=== PATIENT | male | born 1965 | race Hispanic/Latino ===

== ENCOUNTER 2020-12-06 17:22 | Emergency (ER) | payer MEDICAID, OTHER ==
[2020-12-06] MEDS ORDERED: LIDOCAINE HCL 2% JELLY 5 ML ONE (18:33)
== END 2020-12-06 19:05 | disposition home or self-care (01) ==
LOC: EDH 17:22
DX: K60.0 Acute anal fissure (principal)

== ENCOUNTER 2025-03-19 03:23 | Emergency (ER) | payer SELFPAY ==
[~2025-03-19] VITALS: Ht 165.1 cm; Wt 70.5 kg
[2025-03-19 04:12] LABS: BASOPHILS # (AUTO) 0.02 K/uL (0.00-0.20); BASOPHILS % (AUTO) 0.3 % (0.0-5.0); EOSINOPHILS % (AUTO) 1.4 % (0.0-8.0); HEMATOCRIT 41.7 % (42-54); IMMATURE GRANULOCYTE ABSOLUTE 0.01 K/uL (0-1); LYMPHOCYTES # (AUTO) 4.4 K/uL (1.0-4.8); LYMPHOCYTES % (AUTO) 59.9 % (21.0-51.0); MEAN CORPUSCULAR HEMOGLOBIN 29.4 pg (27.0-33.0); MEAN CORPUSCULAR HGB CONC 34.5 g/dL (32.0-36.0); MEAN CORPUSCULAR VOLUME 85.1 fL (79-99); MONOCYTES # (AUTO) 0.6 K/uL (0.1-1.0); MONOCYTES % (AUTO) 7.5 % (3.0-13.0); NEUTROPHILS # (AUTO) 2.3 K/uL (1.8-7.7); NEUTROPHILS % (AUTO) 30.8 % (40.0-77.0); PLATELET COUNT (AUTO) 204 K/uL (130-400); WHITE BLOOD COUNT (AUTO) 7.4 K/uL (4.8-10.8)
[2025-03-19] MEDS: [UNRECOGNIZED DRUG - OTHER] IV ONE (04:18)
[2025-03-19] MEDS ORDERED: 0.9%NACL 1000ML IV ONE (04:18)
[2025-03-19 04:23] LABS: ALBUMIN 3.9 g/dL (3.5-5.0); BILIRUBIN,TOTAL 0.4 mg/dL (0.2-1.0); POTASSIUM 3.6 mmol/L (3.5-5.1); TOTAL PROTEIN, SERUM 7.8 g/dL (6.0-8.3)
[2025-03-19] MEDS: INSULIN humuLIN R 100 UNIT/ML 3ML SQ ONE ×2 (05:12→06:39)
[2025-03-19] MEDS ORDERED: IOHEXOL-350 75 ML VIAL IV ONE (05:29)
--- NOTE | 2025-03-19 05:51 | NUR ---
DR. BEARD MADE AWARE OF PT NOW REPORTING ITHCINGWITH NOTICABLE HIVES TO FACE AFTER ADMINISTRATION OF IV CONTRAST, PT CONTINUES TO DENY ALLERGIES TO CONTRAST IODINE. BENADRYL 25MG IV ORDERED BY DR. BEARD AT THIS TIME.
[2025-03-19] MEDS: DiphenhydrAMINE HCL 50 MG/ML VIAL ONE (05:58)
[2025-03-19] MEDS: DiphenhydrAMINE HCL 50 MG/ML VIAL IV ONE (05:58)
--- NOTE | 2025-03-19 05:58 | NUR ---
BENADRYL 25MG IV ADMINISTERED AT THIS TIME FOR HIVES AND ITCHING SP IV CONTRAST IODINE. PT IS A&OX4, GCS 15, RESP EVEN AND UNLABORED ON RA, TACHYCARDIA NOTED 110s, PT DENIES SOB, NO SIGNS OF AIRWAY COMPROMISE, AIRWAY IS PATENT AND MAINTAINED ON RA.
[2025-03-19] MEDS ORDERED: MECL-302 PO (06:38)
--- NOTE | 2025-03-19 06:39 | ERN ---
General Chief Complaint: Dizzy/Light Headed Stated Complaint: DIZZINESS Time Seen by MD: 03:35 History of Present Illness Initial Comments Mr Simpson is a year-old male who with a history of diabetes who presents to the ED after complaints of intermittent dizziness that began while he was sleeping. He describes the dizziness as feeling like you can not walk initially attributed to the hyperglycemia. He self administered candy and seat foods but with partial but not complete resolution. He denies measuring his blood sugar and does not check it for the last 3 months. He also reports neck pain, red flush face and trembling earlier with mild polyuria but denies chest pain, shortness of breath and recent illness. Dizziness is positional to some extent worsening with standing he has not involve room spinning or true vertigo. He can walk unassisted but reports feeling off during certain movements were coordination tests Allergies: Coded Allergies: Iodinated Contrast Media (Unverified Allergy, Intermediate, HIVES, 03/19/25) HIVES AND ITCHING NOTED AFTER IV CONTRAST ADMINISTRATION. No Known Allergies (Unverified Allergy, Unknown, 03/19/25) Past Medical History Past Medical History: Diabetes-Type II Past Surgical History: None ROS Dictation Constitutional: Negative for fever,chills, and weight loss Eyes: Negative for injury, pain,redness, and discharge ENT: Positive neck discomfort Cardiovascular: Negative for chest pain, palpitations, and edema Respiratory: Negative for shortness of breath, cough, and wheezing, Abdomen/GI: Negative for abdominal pain, nausea, vomiting, diarrhea, and constipation Back: Negative for injury and pain : Negative for injury, bleeding and discharge MS/Extremity: Negative for injury and deformity Skin: Negative for rash, and discoloration Neuro: Intermittent dizziness, subjective imbalance no focal weakness Psych: Negative for suicide ideation, homicidal ideation, and hallucinations Physical Exam Physical Exam Dictation General: awake, alert, NAD Head/Face: Normocephalic, atraumatic Eyes: PERRL, EOMI, vision at baseline ENT: oral cavity clear, TMs clear, no signs of infection Neck: Trachea midline, supple, no nuchal rigidity Cardiovascular: RRR, normal S1/S2, No MRGs, no JVD Respiratory: CTAB, no respiratory distress, No rales or wheezes Abdomen: Soft, non-tender, non-distended, normal bowel sounds, no guarding or rebound. Skin: Warm, dry, normal turgor, no rash MS/Extremity: Pulses equal, no cyanosis, neurovascular intact, FROM Neuro: Cranial nerves intact, motor 5/5 bilateral strength in the upper and lower extremities. Sensation is intact to touch on the face and extremities. Cerebellar: Slight difficulty with coordination task (rapid alternating movements). Ambulates independently mild imbalance noted Psych: Normal behavior, mood, and affect normal Results Laboratory and Microbiology Lab and Micro Result Laboratory Tests Test 03/19/25 03:43 03/19/25 03:52 03/19/25 05:54 Whole Blood Glucose 432 MG/DL (70-110) *H 293 MG/DL (70-110) H White Blood Count 7.4 K/uL (4.8-10.8) Red Blood Count 4.90 MIL/uL (4.50-6.20) Hemoglobin 14.4 g/dL (14.0-18.0) Hematocrit 41.7 % (42-54) L Mean Corpuscular Volume 85.1 fL (79-99) Mean Corpuscular Hemoglobin 29.4 pg (27.0-33.0) Mean Corpuscular Hemoglobin Concent 34.5 g/dL (32.0-36.0) Red Cell Distribution Width 13.0 % (11.0-15.5) Platelet Count 204 K/uL (130-400) Mean Platelet Volume 11.7 fL (7.5-10.5) H Immature Granulocyte % (Auto) 0.1 % (0-1) Neutrophils (%) (Auto) 30.8 % (40.0-77.0) L Lymphocytes (%) (Auto) 59.9 % (21.0-51.0) H Monocytes (%) (Auto) 7.5 % (3.0-13.0) Eosinophils (%) (Auto) 1.4 % (0.0-8.0) Basophils (%) (Auto) 0.3 % (0.0-5.0) Neutrophils # (Auto) 2.3 K/uL (1.8-7.7) Lymphocytes # (Auto) 4.4 K/uL (1.0-4.8) Monocytes # (Auto) 0.6 K/uL (0.1-1.0) Eosinophils # (Auto) 0.10 K/uL (0.00-0.70) Basophils # (Auto) 0.02 K/uL (0.00-0.20) Absolute Immature Granulocyte (auto 0.01 K/uL (0-1) Nucleated Red Blood Cells 0.0 % (0.0-0.19) Sodium Level 132 mmol/L (136-145) L Potassium Level 3.6 mmol/L (3.5-5.1) Chloride Level 95 mmol/L (101-111) L Carbon Dioxide Level 29 mmol/L (21-32) Blood Urea Nitrogen 15 mg/dL (7-18) Creatinine 1.0 mg/dL (0.5-1.3) Glomerular Filtration Rate Calc 88 mL/min (>90) Random Glucose 428 mg/dL (70-105) *H Total Calcium 8.7 mg/dL (8.5-10.1) Total Bilirubin 0.4 mg/dL (0.2-1.0) Aspartate Amino Transf (AST/SGOT) 15 U/L (10-37) Alanine Aminotransferase (ALT/SGPT) 30 U/L (12-78) Alkaline Phosphatase 149 U/L (50-136) H Total Protein 7.8 g/dL (6.0-8.3) Albumin 3.9 g/dL (3.5-5.0) MDM CT head is negative for any acute intracranial abnormality. CT a shows no large vessel occlusion or aneurysm. Patient likely has combination of elevated blood sugar and vertigo. Patient is symptomatically improved from rash related to contrast and he will be given meclizine. Advised patient to follow up with the primary care physician MDM: Differential diagnosis: Vertigo, uncontrolled diabetes Rationale: Tests considered and ordered secondary to shared decision making include: Previous outside records reviewed: Old ER visits. Risk of complication and/or morbidity or mortality of patient management: None Medications-Per medication reconciliation Need for hospitalization: Patient does not meet criteria for hospitalization. Need for emergency major/minor surgery: No There are no social concerns with this patient. Prescription drug management Prescriptions will include symptomatic care Patient's prior external medical records from other ER visits were reviewed by me as indicated. Prior testing and results from previous visits were reviewed. Prior tests were taken into account with medical decision making and resource utilization, independent historian/historians were used to obtain complete medical history. I independently interpreted the test that were performed, results were reviewed by me and considered findings on radiology if ordered. Medical management and examination interpretation discussions were had by me with other qualified healthcare professionals as indicated for the patient's care. ED Course Orders Procedure Category Date Status Time Ct Angio Head And Neck CT 03/19/25 Taken 03:59 Ct Head/Brain W/O CT 03/19/25 Taken Contrast 03:59 Comprehensive LAB 03/19/25 Complete Metabolic Panel 03:59 12 Lead Ekg Tracing- EKG 03/19/25 Logged Technical 03:59 0.9%Nacl 1000ml (Ns PHA 03/19/25 In Process 1000ml) 04:00 Cbc With Differential LAB 03/19/25 Complete 03:52 Insulin Regular, PHA 03/19/25 Complete Human 3ml (Humulin R 05:00 Iohexol (Omnipaque) PHA 03/19/25 Complete 05:29 Diphenhydramine Hcl PHA 03/19/25 Complete (Benadryl Inj) 06:00 Diphenhydramine Hcl PHA 03/19/25 Complete (Benadryl Inj) 05:54 Current Medications Medications (Trade) Dose Ordered Sig/Amos Route PRN Reason Start Time Stop Time Status Last Admin Dose Admin Diphenhydramine HCl (BENAdryl INJ) 25 mg ONCE ONCE IV 03/19/25 06:00 03/19/25 06:01 DC 03/19/25 05:58 Diphenhydramine HCl (BENAdryl INJ) 50 mg STK-MED ONCE .ROUTE 03/19/25 05:54 03/19/25 05:55 DC Insulin Human Regular (humuLIN R 100 UNIT/ML 3ML) 12 unit ONCE ONCE SQ 03/19/25 05:00 03/19/25 05:02 DC 03/19/25 05:12 Iohexol (Omnipaque) 75 ml STK-MED ONCE IV 03/19/25 05:29 03/19/25 05:29 DC Sodium Chloride 1,230 ml @ 410 mls/hr ONCE ONCE IV 03/19/25 04:00 03/19/25 06:59 03/19/25 04:18 Vital Signs Date Time Temp Pulse Resp B/P (MAP) Pulse Ox O2 Delivery O2 Flow Rate FiO2 03/19/25 03:50 98.4 102 18 132/79 98 Room Air* 0 21 03/19/25 03:25 97.5 112 19 157/82 98 Room Air 0 DX & DISP Disposition: Discharge Departure Impression: Primary Impression: Vertigo Condition: Stable Scripts Meclizine HCl (Meclizine HCl) 25 Mg Tablet 25 MG PO [id number] PRN for DIZZINESS for 10 Days, #20 TAB 0 Refills Prov: NEELAM BEARD MD 03/19/25 Additional Instructions: Please take meclizine for your dizziness. Please follow up with your primary care physician for further evaluation and care. Your CT imaging is negative for any acute stroke. Please make sure you control your blood sugar and keep it below 250. Referrals: SELF,REFERRAL (PCP) NEELAM BEARD MD Mar 19, 2025 06:39
--- NOTE | 2025-03-19 06:40 | EKG ---
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
[2025-03-19 06:41] VITALS: BP 124/72; PULSE 95; RESP 17; TEMP 98.4; O2SAT 97
--- NOTE | 2025-03-19 08:21 | HMCIMG ---
CT HEAD/BRAIN W/O CONTRAST HISTORY: Dizziness COMPARISON: None TECHNIQUE: Multiple sequential axial images of the head were obtained from the base of the skull through vertex. Patient was not given contrast through intravenous route. FINDINGS: The ventricles and extraventricular CSF spaces are nondilated for patient's age. There is no midline shift, mass effect or herniation. No acute intracranial bleed is seen. Visualized portion of the paranasal sinuses are grossly within normal limits. IMPRESSION: 1. No acute intracranial bleed is seen. CT was performed with one or more following dose reduction techniques: automated exposure control, adjustment of the mA and kv according to patient's size, or use of a iterative reconstruction technique.
--- NOTE | 2025-03-19 08:45 | HMCIMG ---
CT ANGIO HEAD AND NECK HISTORY: Dizziness COMPARISON: None TECHNIQUE: CT angiography of the head was performed. The study was performed using angiographic technique with maximum intensity projection reconstruction images. Patient was given 75 cc of Omnipaque through intravenous route. FINDINGS: The ventricles and extraventricular CSF spaces are nondilated for patient's age. There is no midline shift, mass effect or herniation. No acute intracranial bleed is seen. Visualized portion of the paranasal sinuses are grossly within normal limits. No CT evidence of cerebral aneurysm or abnormal arteriovenous communication is seen. Mild atherosclerosis changes are present. Vertebrobasilar arterial system is grossly within normal limits. IMPRESSION: CTA Head 1. Mild atherosclerotic disease. Otherwise unremarkable CTA of the brain. TECHNIQUE: CT angiography of the neck was performed. The study was performed using angiographic technique with maximum intensity projection reconstruction images. FINDINGS: There are degenerative changes of the cervical spine. Parapharyngeal fat planes are preserved bilaterally. The airway is patent. Normal enhancement of the thyroid gland is noted. Visualized portion of the lung apices are unremarkable. The common, internal and external carotid arteries are visualized. No hemodynamically significant lesion is seen of either extracranial carotid artery system. Both vertebral arteries are seen with antegrade flow. IMPRESSION: CTA Neck 1. Mild atherosclerotic disease. No hemodynamically significant lesion is seen of either extracranial carotid artery system. CT was performed with one or more following dose reduction techniques: automated exposure control, adjustment of the mA and kv according to patient's size, or use of a iterative reconstruction technique.
== END 2025-03-19 06:53 | disposition home or self-care (01) ==
LOC: EDH 03:23
DX: R42 Dizziness and giddiness (principal); E11.9 Type 2 diabetes mellitus without complications; M54.2 Cervicalgia; R35.89 Other polyuria; Z91.041 Radiographic dye allergy status
CPT/HCPCS: 99285; 70496; 96374; 80053; 85025; 82948 ×3; 36415; 70498; 96372; 93005; 70450; J1815; J1200; J7030; Q9967